=== PATIENT | female | born 1960 | race Caucasian/White ===

== ENCOUNTER 2021-04-27 10:39 | Outpatient (CLI) | payer OTHER, SELFPAY ==
--- NOTE | 2021-04-27 11:00 | ECG_ITS ---
Measurements Intervals [place] Rate: 65 P: -5 IA: 152 QRS: -11 QRSD: 89 T: 26 QT: 382 QTc: 398 Interpretive Statements SINUS RHYTHM INCOMPLETE RIGHT BUNDLE BRANCH BLOCK VOLTAGE CRITERIA FOR LVH POOR R WAVE PROGRESSION, ANTERIOR LEADS BORDERLINE ECG Electronically Signed On 04-27-2021 11:10:05 CDT by Aman Lopez D.O.
== END 2021-04-27 10:40 | disposition home or self-care (01) ==
PROVIDERS: PCP Family Medicine; Visit Provider Surgery Plastic and Reconstructive Surgery
DX: Z01.818 Encounter for other preprocedural examination (principal); E78.5 Hyperlipidemia, unspecified
CPT/HCPCS: 93005

== ENCOUNTER 2021-05-01 01:07 | Day surgery (SDC) | payer OTHER, SELFPAY ==
[2021-04-25 10:30] VITALS: BMI 31.6
[2021-05-01] VITALS (9 sets, daily range): BP systolic 125–176; BP diastolic 74–93; PULSE 59–87; RESP 12–20; TEMP 36.2–36.8; O2SAT 94–100; BMI 30.9
[2021-05-01] MEDS: LACTATED RINGERS 1,000 ML 30 ML IV CONT ×2 (11:30→15:09)
[2021-05-01 11:34] LABS: Urine Cotinine NEGATIVE
--- NOTE | 2021-05-01 11:54 | WPDHPUPDATE1 ---
History and Physical Update Update Date/Time: 05/01/21 11:54 History and Physical has been reviewed, including an updated exam of the patient. There are NO changes in the patient's condition. Risks, benefits, and alternatives have been discussed and questions answered. Patient agrees to proceed with procedure.
--- NOTE | 2021-05-01 12:04 | WPDANESEPPF ---
Anes - Initial Pre Proc Eval Procedure: Operation Date: 05/01/21 13:00 Proposed Procedures p Bilateral Breast Reduction - Drew Ramos MD Date/Time: 05/01/21 12:04 Surgeon: Drew Ramos MD Pre Op Diagnosis: macromastia Patient Data Age: 60 Gender: F Height: 1.6 m Weight: 79.1 kg Last Vital Signs Temp 36.8 C 05/01/21 11:10 Pulse 59 L 05/01/21 11:10 Resp 16 05/01/21 11:10 BP 135/82 05/01/21 11:10 Pulse Ox 99 05/01/21 11:10 Allergies Allergy/AdvReac Type Severity Reaction Status Date / Time No Known Allergies Allergy Verified 05/01/21 11:18 Home Medications Medication Instructions Recorded Confirmed Type atorvastatin 20 mg tablet 20 mg PO HS 01/12/20 04/25/21 History cholecalciferol (vitamin D3) 350 350 mcg PO HS 01/12/20 05/01/21 History mcg (14,000 unit) capsule montelukast 10 mg tablet 10 mg PO HS 01/12/20 04/25/21 History omeprazole 40 mg capsule,delayed 40 mg PO HS 01/12/20 04/25/21 History release docusate sodium 100 mg capsule 100 mg PO BID #14 cap 04/16/21 05/01/21 Rx hydrocodone 5 mg-acetaminophen 325 1 tablet PO Q6H PRN #15 tablet 04/16/21 04/16/21 Rx mg tablet ondansetron HCl 4 mg tablet 4 mg PO Q6H #30 tablet 04/16/21 04/16/21 Rx famotidine 20 mg PO HS 04/25/21 04/25/21 History fluticasone propionate 2 spray INTRANASAL HS 04/25/21 04/25/21 History Laboratory Tests 05/01/21 11:15 Cotinine Negative Patient hx anesthesia problems: none Family hx anesthesia problems: none PMFSH Surgical History Surgical History (Updated 04/30/21 @ 10:28 by Michael Claudio DO) History of History of hysterectomy History of surgery on arm History of tonsillectomy Social History Social History Smoking status: Never smoker Alcohol intake: current Substance use: current Living arrangements: with family Spiritual care concerns: No Anes - Eval Final PreProcedure Day of Procedure 05/01/21 12:04 Patient weight: obese Heart: regular rate and rhythm Lungs: clear to auscultation and normal air movement Airway: Mallampati scale class II Neurological: alert and oriented Last oral intake: >/= 8 hours ASA classification: II Emergent: no Anesthetic plan: proceed Anesthesia type and monitoring: general LMA and standard monitoring Informed Consent: The patient's anesthetic plan and its attendant risks and benefits were discussed with the patient/family/POA. Questions were solicited and answers provided to the satisfaction of the patient/family/POA.
[2021-05-01] MEDS: ceFAZolin 2 GM/D5W 50 ML 2 GM/50 ML BAG IVPB (12:35)
--- NOTE | 2021-05-01 12:43 | W.PM.PROC2 ---
Procedure Note - Detailed Date of Procedure 05/01/21 Pre-op Diagnosis macromastia Post-op Diagnosis same Procedure Performed Bilateral Reduction Mammaplasty Surgeon Drew Ramos MD Anesthesia general Findings Inverted T Superior medial pedicle Tissue removed: Right - 916.6 grams Left - 1134.7 grams Description of Procedure She is here today for bilateral breast reduction. Previously and again today the risks, benefits, alternatives were discussed in extensive detail. I wanted her to be very realistic about the risks involved as well as expectations. We discussed aftercare and what to monitor for. She understands we can never guarantee final breast size and there will always be asymmetry. I was very upfront and honest about the risks of sensation change and even nipple loss (). Made sure answered all of her questions to her satisfaction today and consent was obtained. She was marked in the preoperative holding area with their verification. The patient was taken to the operating room placed supine on the operating table. Anesthesia was provided by anesthesiology. She was prepped and draped in a standard sterile fashion. A surgical time-out was taken. Stab incisions were made and I tumessed with a tumescent solution. I marked out the nipple-areolar complex at 42 mm. I then de-epithelialized the pedicle. The pedicle was well left well more than 2 cm in thickness. I then removed the inferior portion of the breast as well as the central keel to get shape based on preoperative planning. At this point copiously irrigated with saline solution and verified a strict hemostasis. I reapproximated the pillars using a 2-0 PDS. I tailor tacked the breast into place with zoey. She was placed in a sitting position. I verified the nipple-areolar complex position based on preoperative markings, intraoperative measurements, and observation which were in full agreement. This nipple-areolar complex was marked at 42 mm in size. A 4mm basket canula was used based on S.A.F.E. technique to optimize symmetry. I then placed supine and de-epithelialized this. Nipple-areolar complex was inset with 3-0 Monocryl. I closed IMF deep with 1 strattafix. I closed the vertical incision with 3-0 Monocryl in the IMF with 3-0 stratafix. Then everything was closed using a running subcuticular 4-0 Monocryl followed by Steri-Strips. A dressing was placed followed by surgical bra. Patient was awoke and taken to PACU without difficulty. All instrument sponge counts were correct at the end of the case. Estimated Blood Loss 50 Drains No Packing No Pathology yes Complications No immediate complications Condition stable Disposition PACU
[2021-05-01] MEDS: TRANEXAMIC ACID 1,000MG/ISO100 1,000 MG/100 ML BAG 200 MG IVPB (12:45)
[2021-05-01] MEDS: LACTATED RINGERS IRRIG 1,000 ML, LIDOCAINE HCL 1% LOCAL INJ 50 ML, EPINEPHrine HCL INJ ... INFILTRATE (14:00)
[2021-05-01] MEDS: fentaNYL CITRATE INJ (*CRX) 100 MCG/2 ML VIAL 25 MCG IV PUSH ×2 (15:47→15:50)
[2021-05-01] MEDS: oxyCODONE HCL (*CRX) 5 MG TAB IR PO (16:17)
== END 2021-05-01 16:53 | disposition home or self-care (01) ==
PROVIDERS: PCP Family Medicine; Visit Provider Surgery Plastic and Reconstructive Surgery
PROC: 0HBV0ZZ Excision of Bilateral Breast, Open Approach (ICD-10-PCS; CPT 19318; principal; 2021-05-01 13:00)
DX: N62 Hypertrophy of breast (principal); D18.01 Hemangioma of skin and subcutaneous tissue; Z79.899 Other long term (current) drug therapy; E66.9 Obesity, unspecified; Z68.30 Body mass index [BMI] 30.0-30.9, adult
CPT/HCPCS: 19318; 80307; 88304; 88305; A9270; J0171; J0690; J1170; J2250; J3010; J7120